=== PATIENT | female | born 1995 | race Two or more races ===

== ENCOUNTER 2024-11-15 09:46 | Outpatient (CLI) | payer OTHER ==
[~2024-11-15 09:46] MED LIST: KETO10TA2 PO
[2024-11-15 10:51] LABS: BASO % 0.7 % (0.1-1.2); EOS # 0.26 (0.04-0.54); EOS % 2.6 % (0.7-7.0); HEMATOCRIT 40.1 % (34.1-44.9); HEMOGLOBIN 13.4 g/dL (11.2-15.7); LYMPH # 1.98 (1.18-3.74); LYMPH % 20.1 % (19.3-53.1); MEAN CORPUSCULAR HEMOGLOBIN 28.4 pg (25.6-32.2); MONO # 0.61 (0.24-0.82); MONO % 6.2 % (4.7-12.5); NEUT # 6.87 (1.56-6.13); NEUT % 69.9 % (34.0-71.1); PLATELET COUNT 335 K/uL (163-369); RED BLOOD COUNT 4.72 M/uL (3.93-5.22); RED CELL DISTRIBUTION WIDTH 12.9 % (11.6-14.4)
[2024-11-15 11:23] LABS: PH,URINE 6.5 (5.0-8.0); URINE APPEARANCE Clear; URINE BILIRRUBIN Negative (NEGATIVE); URINE BLOOD Negative; URINE COLOR Yellow; URINE GLUCOSE Negative (NEGATIVE); URINE KETONE Negative (NEGATIVE); URINE LEUKOCYTE Trace; URINE NITRATE Negative; URINE PROTEIN Negative (NEGATIVE); URINE UROBILINOGEN 0.2 E.U./dl
[2024-11-15 11:28] LABS: CHOL HDL RATIO 3.8 (0-5.0)
[2024-11-15 11:30] LABS: URINE EPITHELIAL CELLS 13.6 uL (0.0-38.8); URINE RBC 28.2 uL (0.0-20.8); URINE WBC 9.6 uL (0.0-23.2)
[2024-11-15 11:35] LABS: URINE CAST 0.44 uL (0.0-1.40)
[2024-11-15 11:36] LABS: ALBUMIN 3.7 gm/dL (3.4-5.0); BILIRUBIN TOTAL 0.56 mg/dL (0.3-1.2); CALCIUM 8.8 mg/dL (8.5-10.1); CREATININE SERUM 0.8 mg/dL (0.55-1.02); GFR 84.22; GLOBULINA 4.6 G/DL (2.4-3.5); POTASSIUM 3.81 mEq/L (3.5-5.1); TOTAL PROTEIN 8.3 gm/dL (6.4-8.2); TSH 1.67 uIU/mL (0.358-3.74)
[2024-11-15 11:39] LABS: C-REACTIVE PROTEIN 0.89 MG/DL (0.00-0.29)
== END 2024-11-15 09:55 | disposition home or self-care (01) ==
LOC: LAB 09:46
DX: D64.9 Anemia, unspecified (principal); N39.0 Urinary tract infection, site not specified; R10.9 Unspecified abdominal pain; E03.9 Hypothyroidism, unspecified; E78.5 Hyperlipidemia, unspecified; R07.9 Chest pain, unspecified; E55.9 Vitamin D deficiency, unspecified; R80.9 Proteinuria, unspecified; E11.9 Type 2 diabetes mellitus without complications; I50.22 Chronic systolic (congestive) heart failure

== ENCOUNTER 2024-11-15 10:29 | Outpatient (CLI) | payer OTHER | END 2024-11-15 10:32 | disposition home or self-care (01) | LOC: RAD 10:29 | PROVIDERS: ATTEND Internal Medicine | DX: I10 Essential (primary) hypertension (principal); Z01.810 Encounter for preprocedural cardiovascular examination; E03.9 Hypothyroidism, unspecified; E78.9 Disorder of lipoprotein metabolism, unspecified; E55.9 Vitamin D deficiency, unspecified; E11.51 Type 2 diabetes mellitus with diabetic peripheral angiopathy without gangrene; E11.9 Type 2 diabetes mellitus without complications; G62.9 Polyneuropathy, unspecified; K21.9 Gastro-esophageal reflux disease without esophagitis; E66.9 Obesity, unspecified ==